=== PATIENT | male | born 1980 | race Caucasian/White ===

== ENCOUNTER 2017-08-11 10:36 | Outpatient (CLI) | payer MEDICARE ==
[2017-08-11 11:47] LABS: eGFR (African) > 60; eGFR (Non-African) > 60
[2017-08-11 19:00] LABS: LEVETIRACETAM(KEPPRA) LEVEL <2.0 ug/mL (6.0-46.0)
== END 2017-08-11 10:37 ==
LOC: LAB 10:36
PROVIDERS: ATTEND Family Medicine
DX: Z51.81 Encounter for therapeutic drug level monitoring (principal); E78.2 Mixed hyperlipidemia
CPT/HCPCS: 36415; 80053; 80061; 80156; 80177

== ENCOUNTER 2017-11-23 15:17 | Outpatient (CLI) | payer MEDICARE, OTHER | END 2017-11-23 15:18 | LOC: POD 15:17 | PROVIDERS: ATTEND Podiatrist | DX: B35.1 Tinea unguium (principal); M79.674 Pain in right toe(s); M79.675 Pain in left toe(s) | CPT/HCPCS: G0463 ==

== ENCOUNTER 2017-12-13 07:58 | Outpatient (CLI) | payer MEDICARE | END 2017-12-13 08:00 | LOC: LAB 07:58 | PROVIDERS: ATTEND Psychiatry & Neurology Psychiatry | DX: F31.63 Bipolar disorder, current episode mixed, severe, without psychotic features (principal) | CPT/HCPCS: 36415; 80156 ==

== ENCOUNTER 2018-01-17 07:10 | Emergency (ER) | payer MEDICARE, OTHER ==
[2018-01-17] MEDS ORDERED: LIDOCAINE/EPI/TETRACAINE 1 APPLIC SYRINGE TOP ONE (07:30)
[2018-01-17 07:33] VITALS: BP 142/85
[2018-01-17] MEDS ORDERED: Lidocaine 1% 5ml(IM or SUTURE)(PAIN CLINIC) ONE (08:15)
--- NOTE | 2018-01-17 08:47 | ED Physician Documentation ---
General Adult - HISTORIAN Historian: patient - HPI Stated Complaint: laceration Chief Complaint: Laceration/Recheck/Suture Onset: hours Further Comments: yes (37 year old patient from [facility] assisted brought in by her foster care therapist with laceration above left eye. Patient states he fell out of bed during the night. Left eye with ecchymosis and edema.) - ROS CONST: no problems EYES/ENT: none CVS/RESP: none GI/: none MS/SKIN/LYMPH: none NEURO/PSYCH: denies: headache - PAST HX Past History: other (HLD, bipolar, ADD, Mental retardation, heart murmur, OCD) Allergies/Adverse Reactions: Allergies Allergy/AdvReac Type Severity Reaction Status Date / Time ziprasidone HCl [From Geodon] Allergy Severe Agitation Unverified 02/01/15 09:28 ziprasidone mesylate Allergy Severe Agitation Unverified 02/01/15 09:28 [From Geodon] citalopram Allergy Unknown Unverified 07/31/14 09:11 reaction paroxetine HCl [From Paxil] Allergy Unknown Unverified 07/31/14 09:11 reaction pemoline [From Cylert] Allergy Unknown Unverified 07/31/14 09:11 reaction Penicillins Allergy Verified 01/17/18 07:34 sertraline HCl [From Zoloft] Allergy Unknown Unverified 07/31/14 09:11 reaction Home Medications: Ambulatory Orders Medication Instructions Recorded Benztropine Mesylate [Artane] 0.5 mg PO BID #60 u2 01/24/13 Acetaminophen [Tylenol Extra 1,000 mg PO Q4 PRN u2 04/28/13 Strength] Carbamazepine 400 mg PO BID u2 03/04/17 Clomipramine HCl 250 mg PO HS av 03/04/17 Clonidine HCl 0.1 mg PO TID u2 03/04/17 Lamotrigine 100 mg PO DAILY u2 03/04/17 Propranolol HCl [Inderal] 40 mg PO Q8 u2 03/04/17 Quetiapine Fumarate [Seroquel] 50 mg PO TID u2 03/04/17 Quetiapine Fumarate [Seroquel] 100 mg PO HS u2 03/04/17 Trazodone HCl 50 mg PO HS PRN u2 03/04/17 Mupirocin [Bactroban] 1 appl TP BID #1 tube 01/17/18 - SOCIAL HX Smoking History: non-smoker - FAMILY HX Family History: No - VITAL SIGNS Vital Signs: Vital Signs Temp Pulse Resp BP Pulse Ox 98.1 F 81 18 142/85 96 01/17/18 09:07 01/17/18 09:07 01/17/18 09:07 01/17/18 09:07 01/17/18 09:07 - REVIEWED ASSESSMENTS Nursing Assessment Reviewed: Yes Vitals Reviewed: Yes Procedures Wound Location: head Wound Length: 3 cm Wound's Depth, Shape: linear Wound Explored: clean Irrigated w/ Saline (ccs): 300 Betadine Prep?: No Anesthesia: L.E.T Volume of Anesthetic: 5 Suture Size/Type: 6:0 Number of Sutures: 8 Layer Closure?: No Progress: Cleaned would with chlorhexadine and NS. LET to wound - Repaired with 6.0 ethilon x 8 sutures; patient tolerated well. Progress - Progress Progress: Modified visual aquity completed. Patient does not appear to have any vision loss at present. [address] Peacock ENT at [facility]. Follow up in clinic; will call patient for appointment. Phone numbers to RN and manager pet provided. in home caregiver updated on plan of care and discharge instructions. ED Results Lab/Radiology - Radiology Radiology Impressions: CT of the facial bones CLINICAL HISTORY: Fall with laceration. TECHNIQUE: CT of the facial bones is performed in contiguous axial slices without the use of contrast. Sagittal and coronal reconstructions are performed by the technologist. FINDINGS: Zygomatic arches are intact. There is a fracture of the anterior wall left maxillary sinus and mildly comminuted fracture nasal bones. Left maxillary sinus is opacified. Mucosal thickening is evident in the right maxillary sinus as well as the sphenoid and ethmoid sinuses. There is a left frontal scalp laceration. Left periorbital soft tissue swelling is demonstrated. Extra- ocular muscles and optic nerves are symmetric. Motion artifact is evident. IMPRESSION: Fracture anterior wall left maxillary sinus and fracture nasal bones. Opacified left maxillary sinus. Chronic paranasal sinus changes. Left periorbital soft tissue swelling and left frontal scalp laceration. Electronically signed on Jan 17, 2018 8:36:33 AM CDT by: Kwadwo Alarcon - Orders Orders: ED Orders Category Date Time Status CT MAXILLOFACIAL W/O DYE Stat Exams 01/17/18 Taken Lidocaine 1% 5ml(IM or SUTURE) [Xylocaine] Med 01/17/18 08:15 Discontinued 50 mg .ROUTE .STK-MED ONE Lidocaine/Epi/Tetracaine [L.e.t] Med 01/17/18 07:30 Discontinued 1 applic TOP NOW ONE General Adult Physical Exam - PHYSICAL EXAM GENERAL APPEARANCE: mild distress EENT: eye inspection normal, LEONA, other (left orbit with significant edema; tender to palpation. 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 NEURO: oriented X3, CN's nml as tested, motor nml, sensation nml, mood/affect nml Discharge Clincal Impression: Laceration of eye region Qualifiers: Encounter type: initial encounter Laterality: left Qualified Code(s): S01.112A - Laceration without foreign body of left eyelid and periocular area, initial encounter Nasal bone fractures Qualifiers: Encounter type: initial encounter Fracture type: closed Qualified Code(s): S02.2XXA - Fracture of nasal bones, initial encounter for closed fracture Fracture of maxillary sinus Qualifiers: Encounter type: initial encounter Fracture type: closed Qualified Code(s): S02.401A - Maxillary fracture, unspecified side, initial encounter for closed fracture Prescriptions: Mupirocin [Bactroban] 1 appl TP BID #1 tube Additional Instructions: Laceration: Keep the wound clean and dry until it has healed. You can wash or shower after 24 hours. Do not soak the wound in water and make sure it is dry afterwards (gently pat the area dry with a clean towel). Do not get into a swimming pool, hot tub, steele or river until your stitches are removed. To remove your dressing, gently pull it off. If needed, you can dampen it with water then gently pull it off. Clean the laceration twice a day with hibiclens and rinse with water clean away any scabbed area Apply thin coat of antibiotic ointment after cleaning the wound. Cover with non-adherent bandage if able. If you have pain, take simple pain relief medication such as Tylenol or ibuprofen. If bandages or dressings get wet, they will need to be changed. Call your doctor for any signs of symptom of infection redness, drainage, pain. Have your stitches removed at your doctors office in 7-10 days. Discharged with bactroban ointment apply a thin coat twice a day. Follow Up appointment: Dr Peacock's (ENT) office will call with a follow up appointment time. Take your disc and report to the appointment. Condition: Stable Disposition: 01 HOME, SELF-CARE Decision to Admit: NO Decision Time: 08:55
--- NOTE | 2018-01-17 14:31 | Diagnostic Imaging Report ---
JOAN ENGLISH (FLOOR COVERING CONTRACTOR) - ER [facility] [address] [facility] [address] [place], [place]. [address] Report Submission Date: Jan 17, 2018 8:36:33 AM CDT Patient Study Name: CLAUDETTE MULLINS Date: Jan 17, 2018 7:38:06 AM CDT Modality Type: CT\SR Gender: M Description: CT FACIAL W/O : 76 Institution: [facility] Physician: JOAN ENGLISH (FLOOR COVERING CONTRACTOR) - ER CT of the facial bones CLINICAL HISTORY: Fall with laceration. TECHNIQUE: CT of the facial bones is performed in contiguous axial slices without the use of contrast. Sagittal and coronal reconstructions are performed by the technologist. FINDINGS: Zygomatic arches are intact. There is a fracture of the anterior wall left maxillary sinus and mildly comminuted fracture nasal bones. Left maxillary sinus is opacified. Mucosal thickening is evident in the right maxillary sinus as well as the sphenoid and ethmoid sinuses. There is a left frontal scalp laceration. Left periorbital soft tissue swelling is demonstrated. Extra- ocular muscles and optic nerves are symmetric. Motion artifact is evident. IMPRESSION: Fracture anterior wall left maxillary sinus and fracture nasal bones. Opacified left maxillary sinus. Chronic paranasal sinus changes. Left periorbital soft tissue swelling and left frontal scalp laceration. Electronically signed on Jan 17, 2018 8:36:33 AM CDT by: Kwadwo CORTEZ
--- NOTE | 2018-01-18 06:42 | Diagnostic Imaging Report ---
JOAN ENGLISH (TUGBOAT ENGINEER) - ER [facility] [address] [facility] [address] [place], [place]. [address] Report Submission Date: Jan 17, 2018 8:36:33 AM CDT Patient Study Name: CLAUDETTE MULLINS Date: Jan 17, 2018 7:38:06 AM CDT Modality Type: CT\SR Gender: M Description: CT FACIAL W/O : 76 Institution: [facility] Physician: JOAN ENGLISH (TUGBOAT ENGINEER) - ER CT of the facial bones CLINICAL HISTORY: Fall with laceration. TECHNIQUE: CT of the facial bones is performed in contiguous axial slices without the use of contrast. Sagittal and coronal reconstructions are performed by the technologist. FINDINGS: Zygomatic arches are intact. There is a fracture of the anterior wall left maxillary sinus and mildly comminuted fracture nasal bones. Left maxillary sinus is opacified. Mucosal thickening is evident in the right maxillary sinus as well as the sphenoid and ethmoid sinuses. There is a left frontal scalp laceration. Left periorbital soft tissue swelling is demonstrated. Extra- ocular muscles and optic nerves are symmetric. Motion artifact is evident. IMPRESSION: Fracture anterior wall left maxillary sinus and fracture nasal bones. Opacified left maxillary sinus. Chronic paranasal sinus changes. Left periorbital soft tissue swelling and left frontal scalp laceration. Electronically signed on Jan 17, 2018 8:36:33 AM CDT by: Kwadwo CORTEZ
== END 2018-01-17 09:07 | disposition home or self-care (01) ==
LOC: ED 07:10
DX: S01.112A Laceration without foreign body of left eyelid and periocular area, initial encounter (principal); S02.2XXA Fracture of nasal bones, initial encounter for closed fracture; S02.401A Maxillary fracture, unspecified side, initial encounter for closed fracture; W06.XXXA Fall from bed, initial encounter; Y93.9 Activity, unspecified; Y92.092 Bedroom in other non-institutional residence as the place of occurrence of the external cause; Y99.9 Unspecified external cause status
CPT/HCPCS: 12013; 70486; 99283

== ENCOUNTER 2018-02-04 08:46 | Outpatient (CLI) | payer MEDICARE | END 2018-02-04 08:47 | LOC: LAB 08:46 | PROVIDERS: ATTEND Family Medicine | DX: R73.9 Hyperglycemia, unspecified (principal); Z51.81 Encounter for therapeutic drug level monitoring | CPT/HCPCS: 36415; 80156; 83036 ==

== ENCOUNTER 2018-03-04 13:26 | Outpatient (CLI) | payer MEDICARE, OTHER | END 2018-03-04 13:28 | LOC: POD 13:26 | PROVIDERS: ATTEND Podiatrist | DX: B35.1 Tinea unguium (principal); M79.674 Pain in right toe(s); M79.675 Pain in left toe(s) | CPT/HCPCS: 11721; G0463 ==

== ENCOUNTER 2018-06-03 13:07 | Outpatient (CLI) | payer MEDICARE, OTHER | END 2018-06-03 13:10 | LOC: POD 13:07 | PROVIDERS: ATTEND Podiatrist | DX: B35.1 Tinea unguium (principal); M79.674 Pain in right toe(s); M79.675 Pain in left toe(s) | CPT/HCPCS: 11721; G0463 ==

== ENCOUNTER 2018-10-28 07:50 | Outpatient (CLI) | payer MEDICARE, OTHER ==
[2018-10-28 08:19] LABS: BASOPHILS % 0.6 (0.0-1.5); EOSINOPHILS % 1.9 % (0.0-6.8); MEAN CORPUSCULAR HEMOGLOBIN 31.2 pg (28.0-34.0); MONOCYTES % 6.4 % (0.0-11.0); NEUTROPHILS # 2.9 # k/uL (1.4-7.7)
[2018-10-28 08:50] LABS: eGFR (Non-African) > 60
== END 2018-10-28 08:00 ==
LOC: LAB 07:50
PROVIDERS: ATTEND Psychiatry & Neurology Psychiatry
DX: Z51.81 Encounter for therapeutic drug level monitoring (principal)
CPT/HCPCS: 36415; 80053; 80156; 85025

== ENCOUNTER 2019-07-14 08:17 | Outpatient (CLI) | payer MEDICARE, OTHER | END 2019-07-14 08:25 | LOC: LAB 08:17 | PROVIDERS: ATTEND Nurse Practitioner Family | DX: E78.2 Mixed hyperlipidemia (principal) | CPT/HCPCS: 36415; 80061 ==

== ENCOUNTER 2019-10-09 14:08 | Outpatient (CLI) | payer MEDICARE, OTHER ==
[2019-10-09 14:43] LABS: eGFR (Non-African) > 60
== END 2019-10-09 14:13 ==
LOC: LAB 14:08
PROVIDERS: ATTEND Nurse Practitioner Family
DX: R94.5 Abnormal results of liver function studies (principal)
CPT/HCPCS: 36415; 80053